=== PATIENT | female | born 1995 | race Caucasian/White ===

== ENCOUNTER → 2022-12-19 09:54 | Outpatient (BNVA) | payer OTHER, SELFPAY | PROVIDERS: Visit Provider Nurse Practitioner Women's Health | DX: Z34.80 Encounter for supervision of other normal pregnancy, unspecified trimester (principal) | CPT/HCPCS: 81000; 82950; 85027; 87086; 87491; 87591; 87661 ==

== ENCOUNTER → 2022-12-27 15:13 | Outpatient (BNVA) | payer OTHER, SELFPAY | PROVIDERS: Visit Provider Obstetrics & Gynecology | DX: Z34.80 Encounter for supervision of other normal pregnancy, unspecified trimester (principal) | CPT/HCPCS: 81000 ==

== ENCOUNTER → 2023-01-31 13:52 | Outpatient (BNVA) | payer OTHER, SELFPAY | PROVIDERS: Visit Provider Nurse Practitioner Women's Health | DX: Z34.80 Encounter for supervision of other normal pregnancy, unspecified trimester (principal) | CPT/HCPCS: 81000 ==

== ENCOUNTER → 2023-02-14 08:11 | Outpatient (BNVA) | payer OTHER, SELFPAY | PROVIDERS: Visit Provider Nurse Practitioner Women's Health | DX: Z34.80 Encounter for supervision of other normal pregnancy, unspecified trimester | CPT/HCPCS: 81000 ==

== ENCOUNTER → 2023-02-21 08:30 | Outpatient (BNVA) | payer OTHER, SELFPAY | PROVIDERS: Visit Provider Nurse Practitioner Women's Health | DX: Z34.80 Encounter for supervision of other normal pregnancy, unspecified trimester (principal) | CPT/HCPCS: 84315; 87081 ==

== ENCOUNTER → 2023-03-14 15:35 | Outpatient (BNVA) | payer OTHER, SELFPAY | PROVIDERS: Visit Provider Obstetrics & Gynecology | DX: Z34.80 Encounter for supervision of other normal pregnancy, unspecified trimester (principal); Z3A.00 Weeks of gestation of pregnancy not specified | CPT/HCPCS: 81000 ==

== ENCOUNTER 2023-03-16 07:21 | Outpatient (CLI) | payer OTHER, SELFPAY ==
[2023-03-16 07:25] VITALS: RESP 17
[2023-03-16 07:36] VITALS: BP 111/77; PULSE 83
[2023-03-16 07:52] VITALS: BP 108/69; PULSE 83
[2023-03-16 09:24] VITALS: BP 108/69; PULSE 83
== END 2023-03-16 09:25 | disposition home or self-care (01) ==
LOC: OPOB 07:22 → OBGYN 07:23
PROVIDERS: Visit Provider Obstetrics & Gynecology
DX: O46.90 Antepartum hemorrhage, unspecified, unspecified trimester (principal); Z3A.00 Weeks of gestation of pregnancy not specified; R10.9 Unspecified abdominal pain
CPT/HCPCS: 59025; 99211

== ENCOUNTER 2023-03-17 02:08 | Inpatient (IN) | payer OTHER, SELFPAY ==
[2023-03-17] VITALS (38 sets, daily range): BP systolic 94–138; BP diastolic 53–89; PULSE 63–96; RESP 12–17; TEMP 36.2–37; O2SAT 96–99; BMI 32.8
[2023-03-17] MEDS: lactated ringers 1,000 ML 999 ML IV ×3 (02:05→10:26)
[2023-03-17 02:16] LABS: Basophils % 0.3 %; Eosinophils # 0.1 10^3/uL (0.0-0.8); Eosinophils % 0.4 %; Hematocrit 35.3 % (36-47); Lymphocytes % 14.1 %; Mean Corpuscular HGB Conc 32.9 g/dL (30-55); Mean Corpuscular Volume 94.4 fl (85-98); Mean Platelet Volume 12.3 fL (7.4-10.4); Monocytes # 1.1 10^3/uL (0.2-0.9); Monocytes % 7.6 %; Neutrophils % 76.7 %; Nucleated Red Blood Cells % 0 %; Platelet Count 183 10^3/cmm (157-399); Red Blood Count 3.74 10^6/uL (3.85-5.65); Red Cell Distribution Width 12.6 % (12.1-15.1); White Blood Count 14.09 10^3/uL (3.29-11.43)
[2023-03-17] MEDS: ondansetron 2 mg/ML SDV 2 mL 4 MG IVP (02:37)
[2023-03-17] MEDS: oxytocin 30 UNIT/500 ML BAG 600 UNIT IV (03:10)
--- NOTE | 2023-03-17 03:19 | P.HP_ITS ---
Providers/Chief Complaint Admitting Physician: Patricia Tristan DO Primary SENIOR JAVA DEVELOPER: Dr. Bellamy Chief Complaint: contractions/ bleeding HPI SENIOR JAVA DEVELOPER History of Present Illness Michelle Barton is a 27 year old female G2, P1 at 39.6 weeks gestation with ASHLEY 03/18/2023. Patient was admitted to labor and delivery with complaints of onset of contractions at 11 PM on 03/16/2023 with light bleeding. Patient states contractions were initially 10 to 15 minutes and increased in frequency to every 5 minutes. Patient denies complications during this . On initial pelvic exam patient cervix was 2 cm and with continued contractions she progressed to 5 cm. EFM?category 1, as labor progressed variables were noted with contractions. Present Details : 2 Para: 1 Review of Systems General: Reports: 10 or more systems reviewed and unremarkable except in HPI and below Medications/Allergies Home Medications Medication Instructions Recorded Confirmed Last Taken Type prenat.vits,bennie,wke-moov-bzszf 1 tab PO DAILY 12/19/22 03/14/23 Unknown History Allergies Allergy/AdvReac Type Severity Reaction Status Date / Time N/A Allergy N/A Uncoded 03/16/23 08:14 PFSH SENIOR JAVA DEVELOPER PFSH: Medical History Irregular menses No pertinent past medical history neghx: htn, dm, thyroid, dvt/pe PCP: none Surgical History Fracture of foot (~2019) Left - surgical repair Family History Mother Ovarian cancer, Onset Age: 32 complete hysterectomy Father Diabetes Denies family history of Colon cancer Heart disease Hyperlipidemia Breast cancer Hypertension Uterine cancer Thyroid disease Stroke History History History 2 Term 1 0 Miscarriages/Ectopic 0 Living Children 1 Care ASHLEY Calculator Estimated Delivery Date Method Current WG Current Estimate 03/18/23 Ultrasound #1 39w 6d Other Estimates 01/22/23 LMP (Uncertain) 47w 5d 03/22/23 Ultrasound #2 39w 2d Specific Issues/Plans * NON-IMMUNE RUBELLA-- plan PP vaccination * Echogenic focus of heart-- low risk NIPT/negative Horizon 14; no further f/u * Irregular menses--8 week sonogram dates the Vitals/I&O/Wt Last Vital Signs Pulse 88 03/17/23 03:16 Resp 16 03/17/23 02:05 BP 114/60 03/17/23 03:16 Pulse Ox 99 03/17/23 02:51 O2 Del Method Room Air 03/17/23 01:40 Weight last 48 hrs Weight 86.636 kg Physical Exam Narrative: 27-year-old female Const: COMMON NORMALS: no acute distress, patient oriented x3, healthy appearing and well nourished Resp: COMMON NORMALS: clear to auscultation bilaterally Cardio: COMMON NORMALS: regular rate and regular rhythm Back/Pelvis: COMMON NORMALS: no CVA tenderness OTHER: Abdomen soft, gravid Pelvic exam as above. Extremity: NARRATIVE EXTREMITY EXAM: No edema negative Homans' sign. Data 03/17/23 01:41 Results Labs OB ([facility]): Blood Type A Positive 03/17/23 Antibody Screen Pending 03/17/23 Hct 35.3 % (36-47) L 03/17/23 Hgb 11.60 g/dL (11.27-16.99) 03/17/23 Rho(D) Type Positive 03/17/23 Plt Count 183 10^3/cmm (157-399) 03/17/23 Glucose 1 Hr 50 gm 85 mg/dL (85-140) 12/19/22 Micro Urine Specimen 12/19/22 A&P Assessment and plan (1) 39 weeks gestation of : 2. GBS negative 3. Active labor P. 1. Admit to labor and delivery for management of labor. (2) Supervision of other normal : (3) Rubella non-immune status, antepartum: (4) Request for sterilization: Attestations Medical Necessity Statement*: Admitted to labor and delivery for management of labor Coding Level of Care Code Acute Code for Chg Fwd Diagnoses 39 weeks gestation of Z3A.39 Supervision of other normal Z34.80 Rubella non-immune status, antepartum O09.899; Z28.39 Request for sterilization Z30.2
--- NOTE | 2023-03-17 03:27 | PM.DELIVERY ---
Delivery Note: Date of delivery: March 17, 2023 Pre-delivery diagnoses: 1. 39.6 weeks gestation 2. Rubella nonimmune 3. GBS negative 4. Requesting elective sterilization 5. Echogenic focus of heart affecting antepartum care of mother Post-delivery diagnoses: Same Procedure: with viable male infant Op report anesthesia: None Estimated blood loss (mL): 400 Findings: Viable male Delivery: 27-year-old female G2, P2 at 39.6 weeks gestation delivered a viable male OA presentation over intact perineum. Anterior followed by the posterior shoulders were delivered with the remainder of the baby's body to follow. The oral and nasal pathways were bulb suctioned and spontaneous robust cry was noted. With delayed clamping of the cord the cord was clamped and cut and baby placed on the mother's abdomen for bonding. Three-vessel cord was noted Cord pH drawn and handed off. Cord blood was then obtained and handed off as well. The uterus was massaged and the placenta presented in a Recinos presentation with trailing membranes. IV solution with Pitocin was started in a bolus manner. The uterus was massaged and firmed well. Bleeding was minimal. The vaginal vault and perineum were explored no lacerations noted. Perineum was cleansed the uterus massaged with firmness noted. Apgars?8/9 weight?6 pounds 12 ounces EBL 400 anesthesia?none Mother and are both in stable and satisfactory condition. Post-Delivery Status: Stable History History History 2 Term 1 0 Miscarriages/Ectopic 0 Living Children 1 A&P Assessment and plan (1) 39 weeks gestation of : GBS negative (2) Rubella non-immune status, antepartum: (3) Echogenic focus of heart of fetus affecting antepartum care of mother: (4) Request for sterilization: Patient desires elective sterilization?risk and benefits reviewed to include bleeding, infection, anesthesia risk and failure resulting in intrauterine or ectopic . Ectopic occurrence may require surgical intervention. Patient does not desire to use contraception. She states her family is complete. Coding Level of Care Code Acute Code for Chg Fwd Diagnoses 39 weeks gestation of Z3A.39 Rubella non-immune status, antepartum O09.899; Z28.39 Echogenic focus of heart of fetus affecting antepartum care of mother O35.BXX0 Request for sterilization Z30.2
--- NOTE | 2023-03-17 04:20 | PM.OBGYPN ---
TECHNOLOGY EDUCATION TEACHER Subjective Subjective: Interval history: 27-year-old female G2, P2 s/p approximately 1 hour postdelivery, nursing staff report uterine atony with passage of a few large clots and moderate blood. Uterus was massaged and firmed well. Second IV bag with Pitocin started. Upon my examination of the patient the uterus was firm bleeding minimal. Patient denied headaches blurred vision or abdominal pain. Patient treated with TXA IM. Labor: Station: -1 Amniotic Membrane Status: Intact Monitor Mode: External Contraction Pattern: Regular Vitals/I&O/Wt Last Vital Signs Temp 97.2 F L 03/17/23 03:55 Pulse 71 03/17/23 04:07 Resp 16 03/17/23 02:05 BP 107/56 03/17/23 04:07 Pulse Ox 99 03/17/23 02:51 O2 Del Method Room Air 03/17/23 01:40 03/16/23 03/16/23 03/17/23 14:59 22:59 06:59 Intake Total 1470 / 1470 Balance 1470 / 1470 Weight last 48 hrs Weight 86.636 kg Data 03/17/23 01:41 A&P Assessment and plan (1) Spontaneous vaginal delivery: (2) 39 weeks gestation of : (3) Uterine atony: IV fluid with Pitocin bolus TXA IM (4) Request for sterilization: (5) Rubella non-immune status, antepartum: Attestations Medical Necessity Statement*: Admission of patient to labor and delivery for management of labor. Coding Level of Care Code Acute Code for Chg Fwd Diagnoses Spontaneous vaginal delivery O80 39 weeks gestation of Z3A.39 Uterine atony O62.2 Request for sterilization Z30.2 Rubella non-immune status, antepartum O09.899; Z28.39
[2023-03-17 10:01] LABS: Basophils % 0.2 %; Hematocrit 32.7 % (36-47); Lymphocytes # 1.5 10^3/uL (0.8-4.8); Mean Corpuscular HGB Conc 32.4 g/dL (30-55); Mean Corpuscular Hemoglobin 31.2 pg (27-33); Mean Corpuscular Volume 96.2 fl (85-98); Mean Platelet Volume 12.2 fL (7.4-10.4); Monocytes # 0.9 10^3/uL (0.2-0.9); Monocytes % 6.1 %; Neutrophils # 12.41 10^3/uL (1.8-7.7); Neutrophils % 83.2 %; Nucleated Red Blood Cells % 0 %; Platelet Count 170 10^3/cmm (157-399); Red Cell Distribution Width 12.7 % (12.1-15.1); White Blood Count 14.92 10^3/uL (3.29-11.43)
--- NOTE | 2023-03-17 10:16 | ANES.PREANE2 ---
Pre-Anesthetic Assessment Height/Weight: Height 1.63 m Weight 86.636 kg Temp Pulse Resp BP Pulse Ox O2 Del Method 98.1 F 74 17 105/69 97 Room Air 03/17/23 08:15 03/17/23 08:15 03/17/23 08:15 03/17/23 08:15 03/17/23 08:15 03/17/23 08:15 Preop Diagnosis: Desired Sterilization Familial anesthetic complications: None Was Beta Alba taken within 24 hours: N/A Was Clonidine taken within 24 hours: N/A Last intake: Intake Last Liquid Date 03/16/23 Last Liquid Time 16:00 Last Solid Date 03/16/23 Last Solid Time 16:00 Social No alcohol and No tobacco Exam alert, oriented x 3, clear to auscultation bilaterally and regular rate & rhythm Airway Submandibular: within normal limits Cervical ROM: within normal limits Mallampati: Class II Dentition: full History/ROS No significant history except as noted and No significant complaints Pulmonary None reported CV/HEM None reported None reported Hepatic None reported GI Gastroesophageal Reflux Disease Metabolic None reported Musc/skel None reported Neuropsych None reported Anesthetic Plan ASA status: 2 Anesthesia: Anesthesia Evaluation and Regional (specify below) Risk of > 500 ml blood loss (7ml/kg in children): No Medications/Allergies Home Medications Medication Instructions Recorded Confirmed Last Taken Type prenat.vits,bennie,uxn-uvks-gqung 1 tab PO DAILY 12/19/22 03/14/23 Unknown History Allergies Allergy/AdvReac Type Severity Reaction Status Date / Time N/A Allergy N/A Uncoded 03/16/23 08:14 Current Medications Generic Name Dose Route Start Last Admin Trade Name Freq PRN Reason Stop Dose Admin Oxytocin 30 unit in 500 mls @ 600 mls/hr 03/17/23 02:05 03/17/23 03:57 Pitocin IV 125 mls/hr .Q50M PRN 125 mls/hr After delivery of infant Titration Protocol Tranexamic Acid 1,000 mg/ 110 mls @ 330 mls/hr 03/17/23 02:05 03/17/23 04:04 Sodium Chloride IV 330 mls/hr Q30M PRN Administration BLEEDING Lactated Ringer's 1,000 mls @ 999 mls/hr 03/17/23 02:06 03/17/23 03:10 Lactated Ringers IV 999 mls/hr .Q1H1M PRN Administration See label comments Ondansetron HCl 4 mg 03/17/23 02:05 03/17/23 02:37 Ondansetron 2 Mg/Ml Sdv 2 Ml IVP 4 mg Q4H PRN Administration NAUSEA AND VOMITING PFSH Anesthesia Medical History Irregular menses No pertinent past medical history neghx: htn, dm, thyroid, dvt/pe PCP: none Surgical History Fracture of foot (~2019) Left - surgical repair Family History Mother Ovarian cancer, Onset Age: 32 complete hysterectomy Father Diabetes Denies family history of Colon cancer Heart disease Hyperlipidemia Breast cancer Hypertension Uterine cancer Thyroid disease Stroke Female Reproductive History : 2 Data Anesthesia 03/17/23 09:50 Short CBC 03/17/23 03/17/23 Range/Units 01:41 09:50 WBC 14.09 H 14.92 H (3.29-11.43) 10^3/uL Hgb 11.60 10.60 L (11.27-16.99) g/dL Hct 35.3 L 32.7 L (36-47) % MCV 94.4 96.2 (85-98) fl Plt Count 183 170 (157-399) 10^3/cmm Neut % (Auto) 76.7 83.2 % Neut # (Auto) 10.80 H 12.41 H (1.8-7.7) 10^3/uL Blood Bank 03/17/23 01:41 Blood Type A Positive Rho(D) Type Positive Antibody Screen Negative Cardiac Studies: No Data to Display
[2023-03-17] MEDS: citric acid-sodium citrate 30 mL UDC PO (10:25)
[2023-03-17] MEDS: famotidine 20 mg/2 mL INJ IVP (10:25)
[2023-03-17] MEDS: metoclopramide 5 mg/mL SDV 2 mL 10 MG IVP (10:25)
--- NOTE | 2023-03-17 11:31 | PM.OP ---
Operative Report Date of procedure: March 17, 2023 Pre-op diagnosis: S/p Desires elective sterilization Post-op diagnosis: bilateral fimbriectomy for sterilization Post-op findings: Normal uterus tubes and ovaries Procedure done: Bilateral fimbriectomy Specimens removed/disposition: Partial salpingectomy including fimbria x2 Surgeon: Patricia Tristan DO Anesthesia: Spinal Estimated blood loss (mL): 2 Complications: None Brief History: 27-year-old female G2, P2 s/p desiring elective sterilization. Patient states her family is complete she desires no future pregnancies. Procedure: After informed consent patient was taken to the surgical suite placed in the sitting position and anesthesia personnel administered spinal anesthesia. Patient was then repositioned in supine position abdomen prepped and draped in standard fashion. Anesthesia level was found to be adequate and a small incision was made under the umbilicus. The incision was extended to the peritoneum which was opened with [employer] retractors placed in the incision. The uterus was manipulated to find the left fallopian tube which was grasped with a Addie then reclamped with a hemostat. Using 0 chromic the tube including the fimbria was suture-ligated x2, excised followed by cauterization of the stump with the Bovie. Same procedure was done on the right fallopian tube and both segments of tubes handed off and will be sent to pathology. Both stumps were evaluated no bleeding encountered. The uterus was allowed to resume its normal anatomical position. The retractors were removed the peritoneum clamped with hemostats approximated with 2-0 Vicryl. The fascia was approximated with 2-0 Vicryl and the skin closed with 4-0f Vicryl. The skin was then infiltrated with lidocaine, cleansed and a Band-Aid applied. The incision is hemostatically intact. Patient is in stable and satisfactory condition.
[2023-03-17] MEDS: lidocaine-epi 1% 20 mL INJ INJECTION (11:38)
[2023-03-17] MEDS: ibuprofen 800 mg tablet PO ×2 (15:00→21:51)
[2023-03-18 06:07] VITALS: BP 116/76; PULSE 69; RESP 15; TEMP 36.8
[2023-03-18] MEDS: prenatal vitamin Capsule 1 CAP PO (09:20)
[2023-03-18] MEDS: ibuprofen 800 mg tablet PO (09:20)
[2023-03-18] MEDS: docusate sodium 100 mg Capsule PO (09:20)
[2023-03-18 09:47] VITALS: BP 109/72; PULSE 69; RESP 14; TEMP 36.8; O2SAT 97
[2023-03-18 10:50] VITALS: BP 109/72; PULSE 69; RESP 14; TEMP 36.8; O2SAT 97
--- NOTE | 2023-03-18 17:05 | PM.OBGYPN ---
INSULATOR APPRENTICE Subjective Subjective: Interval history: no c/o no bleeding, pain eating, voiding, ambulating well caring for without any problems Labor: Station: -1 Amniotic Membrane Status: Intact Monitor Mode: External Contraction Pattern: Regular Vitals/I&O/Wt Last Vital Signs Temp 98.3 F 03/18/23 10:50 Pulse 69 03/18/23 10:50 Resp 14 03/18/23 10:50 BP 109/72 03/18/23 10:50 Pulse Ox 97 03/18/23 10:50 O2 Del Method Room Air 03/18/23 09:47 Physical Exam Narrative: afebrile, VS normal comfortable, awake, alert Abd: soft, nontender. fundus firm Subumbilical incision clean and dry Ext: no edema; nontender Urinary Catheter Management: Straight: Cath Placed During This Visit: no Data 03/17/23 09:50 A&P Assessment and plan (1) Vaginal delivery: PPD #1 s/p bilateral tubal ligation doing well discharge home today instructions and precautions given call/return if fever, chills, headache, blurry vision, nausea, vomiting, abdominal pain; vaginal bleeding or discharge; shortness of breath, chest pain, leg pains or swelling; inability to void, perineal pain or swelling; feelings of depression or mood changes; thoughts of suicide or harming others; inability to care for baby. f/u in one week or PRN (2) Encounter for female sterilization procedure: s/p bilateral tubal ligation Attestations Medical Necessity Statement*: patient s/p vaginal delivery and bilateral tubal ligation; plan discharge home today Coding Level of Care Code Acute Code for Chg Fwd Diagnoses Vaginal delivery O80 Encounter for female sterilization procedure Z30.2 Time Spent (min) 20
--- NOTE | 2023-03-18 17:05 | P.DS_ITS ---
Discharge Providers MANAGER MARKET DEVELOPMENT Date of Admission: 03/17/23 02:08 Date of Discharge: 03/18/23 Attending Provider at Admission: Patricia Tristan DO Attending Provider at Discharge: Patricia Tritsan DO Consults: none Primary MANAGER MARKET DEVELOPMENT: Fredrick Bellamy MD Diagnoses at Discharge Discharge Diagnosis (1) Vaginal delivery: Details from hospital stay: s/p Status: Acute (2) Encounter for female sterilization procedure: Details from hospital stay: s/p bilateral tubal ligation Status: Acute Reason for Visit Reason for Visit: contractions/ bleeding Brief History: 28 y.o. at term presented with painful uterine contractions had vaginal delivery without any complications Hospital Course Hospital Course patient desired permanent sterilization bilateral tubal ligation was performed without any complications Information Peripartum Data: Delivery Method: Vaginal Laceration description: None Episiotomy description: None complications: none Physical Exam Narrative: afebrile, VS normal comfortable, awake, alert Abd: soft, nontender. fundus firm Subumbilical incision clean and dry Ext: no edema; nontender Urinary Catheter Management: Straight: Cath Placed During This Visit: no History History History 2 Term 2 0 Miscarriages/Ectopic 0 Living Children 2 Discharge Data Studies Completed and Pending Completed Studies During Hospitalization Category Date Time Status Pathology: Surgical [PTH] Routine Pth 03/17/23 12:00 Completed Laboratory Results WBC 14.92 10^3/uL (3.29-11.43) H 03/17/23 09:50 RBC 3.40 10^6/uL (3.85-5.65) L 03/17/23 09:50 Hgb 10.60 g/dL (11.27-16.99) L 03/17/23 09:50 Hct 32.7 % (36-47) L 03/17/23 09:50 MCV 96.2 fl (85-98) 03/17/23 09:50 MCH 31.2 pg (27-33) 03/17/23 09:50 MCHC 32.4 g/dL (30-55) 03/17/23 09:50 RDW 12.7 % (12.1-15.1) 03/17/23 09:50 Plt Count 170 10^3/cmm (157-399) 03/17/23 09:50 MPV 12.2 fL (7.4-10.4) H 03/17/23 09:50 Neut % (Auto) 83.2 % 03/17/23 09:50 Lymph % (Auto) 10.0 % 03/17/23 09:50 [place] % (Auto) 6.1 % 03/17/23 09:50 Eos % (Auto) 0.0 % 03/17/23 09:50 Baso % (Auto) 0.2 % 03/17/23 09:50 Neut # (Auto) 12.41 10^3/uL (1.8-7.7) H 03/17/23 09:50 Lymph # (Auto) 1.5 10^3/uL (0.8-4.8) 03/17/23 09:50 [place] # (Auto) 0.9 10^3/uL (0.2-0.9) 03/17/23 09:50 Eos # (Auto) 0.0 10^3/uL (0.0-0.8) 03/17/23 09:50 Baso # (Auto) 0.0 10^3/uL (0.0-0.1) 03/17/23 09:50 Nucleated RBC % (auto) 0 % 03/17/23 09:50 Nucleated RBCs # 0.0 /100WBC 03/17/23 09:50 Blood Type A Positive 03/17/23 01:41 Rho(D) Type Positive 03/17/23 01:41 Antibody Screen Negative 03/17/23 01:41 Procedures Performed vaginal delivery bilateral tubal ligation Vitals Last Vital Signs Temp 98.3 F 03/18/23 10:50 Pulse 69 03/18/23 10:50 Resp 14 03/18/23 10:50 BP 109/72 03/18/23 10:50 Pulse Ox 97 03/18/23 10:50 O2 Del Method Room Air 03/18/23 09:47 Results Labs OB ([facility]): Blood Type A Positive 03/17/23 Antibody Screen Negative 03/17/23 Hct 32.7 % (36-47) L 03/17/23 Hgb 10.60 g/dL (11.27-16.99) L 03/17/23 Rho(D) Type Positive 03/17/23 Plt Count 170 10^3/cmm (157-399) 03/17/23 Glucose 1 Hr 50 gm 85 mg/dL (85-140) 12/19/22 Micro Urine Specimen 12/19/22 Discharge Plan Discharge Patient Disposition: Home Condition: Stable Prescriptions: Continued prenat.vits,bennie,znh-sxtd-mtlwj Tablet 1 tab PO DAILY No Action cephalexin 500 mg capsule 500 mg PO Q8H Qty: 30 0RF Discharge Orders: Discharge Order (Routine); Ordered 03/18/23 Ordered By: Bossman Mason Referrals: Fredrick Bellamy MD [Physician] - 04/21/23 9:45 am Vibha Parry APN, WHNP [Nurse Practitioner] - 03/25/23 1:45 pm Discharge Diet: Usual diet Discharge Activity: Increase activity as tolerated Patient Instructions: Depression (DC), Bleeding (DC), Preeclampsia and Eclampsia After Delivery (GEN), Tubal Ligation (GEN), Hemorrhage (DC), OB Discharge Report, OB Food/Drug Interaction Guide, OB Care at Home, Opioid Safety, OB Home Care, Abnormal Bleeding Discharge Attestations MANAGER MARKET DEVELOPMENT Time Spent in Discharge Care*: less than 30 min Coding Level of Care Code Acute Code for Chg Fwd Diagnoses Vaginal delivery O80 Encounter for female sterilization procedure Z30.2 Time Spent (min) 20
== END 2023-03-18 11:00 | disposition home or self-care (01) | DRG 798 ==
LOC: OPOB 02:08 → OBGYN 02:08
PROVIDERS: Admitting Provider Obstetrics & Gynecology; Visit Provider Obstetrics & Gynecology
PROC: 10E0XZZ Delivery of Products of Conception, External Approach (ICD-10-PCS; CPT 58605; principal; 2023-03-17 10:30)
DX: O72.1 Other immediate postpartum hemorrhage (principal); Z37.0 Single live birth; Z30.2 Encounter for sterilization; Z3A.39 39 weeks gestation of pregnancy
CPT/HCPCS: 36415; 51702; 58605; 59025; 59409; 85025; 86850; 86900; 88302; 96374; 96376; 98960; 99211; J1885; J2405; J2590; J2765; J3490; J7120

== ENCOUNTER → 2023-11-13 14:53 | Outpatient (BNVA) | payer OTHER, SELFPAY | PROVIDERS: PCP Nurse Practitioner; Visit Provider Podiatrist Foot & Ankle Surgery | DX: B07.0 Plantar wart (principal) | CPT/HCPCS: 17110; 99203 ==

== ENCOUNTER → 2023-11-28 14:30 | Outpatient (BNVA) | payer OTHER, SELFPAY | PROVIDERS: PCP Nurse Practitioner; Visit Provider Podiatrist Foot & Ankle Surgery | DX: B07.0 Plantar wart (principal) | CPT/HCPCS: 99213 ==

== ENCOUNTER → 2024-06-04 16:29 | Outpatient (BNVA) | payer OTHER, SELFPAY | PROVIDERS: PCP Nurse Practitioner; Visit Provider Obstetrics & Gynecology | DX: Z01.419 Encounter for gynecological examination (general) (routine) without abnormal findings (principal) | CPT/HCPCS: 87624 ==

== ENCOUNTER 2024-08-17 06:00 | Outpatient (RCR) | payer OTHER, SELFPAY | END 2024-09-15 23:59 | disposition home or self-care (01) | LOC: WPT 06:00 | PROVIDERS: Visit Provider Nurse Practitioner | DX: M25.551 Pain in right hip (principal) | CPT/HCPCS: 97110; 97112; 97116; 97161; 97530 ==

== ENCOUNTER → 2025-04-28 13:11 | Outpatient (BNVA) | payer OTHER, SELFPAY | PROVIDERS: Visit Provider Podiatrist Foot & Ankle Surgery | DX: B07.9 Viral wart, unspecified (principal); B07.0 Plantar wart | CPT/HCPCS: 99213 ==